=== PATIENT | female | born 1940 | race Caucasian/White ===

== ENCOUNTER 2019-05-18 07:59 | Inpatient (IN) | payer MEDICARE ==
[~2019-05-18] VITALS: Ht 167.6 cm; Wt 75.9 kg
[~2019-05-18 07:59] MED LIST: ASCO10004 PO; CRAN500C PO; MULT-658 PO; PROP20TA PO; VIT1CAPS42 PO; [UNRECOGNIZED DRUG - CODE] PO
[2019-05-18] MEDS ORDERED: LACTATED RINGERS 1,000 ML IV SCH (08:22)
[2019-05-18] MEDS ORDERED: LIDOCAINE-MPF 1%, 2ML INFIL ONE (08:30)
[2019-05-18 08:44] VITALS: BP 189/99
[2019-05-18] MEDS ORDERED: HEPARIN 1,000 UNITS/ML, 30ML ONE (08:49)
[2019-05-18] MEDS ORDERED: PROTAMINE SULFATE 10 MG/ML, 5ML ONE (08:49)
[2019-05-18] MEDS ORDERED: BUPIVACAINE/PF-EPI 0.5% 1:200K ONE ×2 (08:49→10:45)
[2019-05-18] MEDS ORDERED: HEPARIN 1,000 UNITS/ML, 10ML ONE (08:49)
[2019-05-18] MEDS ORDERED: THROMBIN 20,000 UNIT VIAL TP ONE (08:50)
[2019-05-18 08:55] LABS: BASOPHILS # (AUTO) 0.05 x10^3/uL (0-0.1); BASOPHILS % (AUTO) 1 % (0-1); EOSINOPHILS # (AUTO) 0.14 x10^3/uL (0-0.4); EOSINOPHILS % (AUTO) 1 % (1-7); LYMPHOCYTES # (AUTO) 2.66 x10^3/uL (1-3.4); LYMPHOCYTES % (AUTO) 26 % (22-44); MD NO; MEAN CORPUSCULAR HEMOGLOBIN 29.8 pg (27.0-34.8); MEAN CORPUSCULAR HGB CONC 32.7 g/dL (32.4-35.8); MEAN CORPUSCULAR VOLUME 91.1 fL (80-100); MEAN PLATELET VOLUME 7.7 fL (7.4-10.4); MONOCYTES # (AUTO) 0.73 x10^3/uL (0.2-0.8); MONOCYTES % (AUTO) 7 % (2-9); NEUTROPHILS # (AUTO) 6.64 x10^3/uL (1.8-6.8); NEUTROPHILS % (AUTO) 65 % (42-75); PLATELET COUNT 370 x10^3/uL (130-400); RED BLOOD COUNT 6.04 x10^6/uL (3.82-5.3); RED CELL DISTRIBUTION WIDTH 13.2 % (9.6-15.2)
[2019-05-18 09:03] LABS: ALANINE AMINOTRANSFERASE 19 U/L (12-78); ALBUMIN 3.8 g/dL (3.4-5.0); ANION GAP 8 mmol/L (5-15); CALCIUM 9.5 mg/dL (8.5-10.1); CHLORIDE 103 mmol/L (98-107); CREATININE 1.15 mg/dL (0.55-1.02)
[2019-05-18 09:05] LABS: ALKALINE PHOSPHATASE 120 U/L (45-117); BILIRUBIN,TOTAL 0.7 mg/dL (0.2-1.0); TOTAL PROTEIN 8.4 g/dL (6.4-8.2)
[2019-05-18] MEDS ORDERED: MIDAZOLAM 1 MG/ML, 2ML ONE (10:06)
[2019-05-18] MEDS ORDERED: FENTANYL PF 250 MCG/5ML ONE (10:06)
[2019-05-18] MEDS ORDERED: BUPIVACAINE/PF 0.5% ONE (10:45)
[2019-05-18] MEDS ORDERED: BUPIVACAINE/PF 0.25% ONE (10:45)
[2019-05-18] MEDS ORDERED: PHENYLEPHRINE 10 MG/ML ONE (11:04)
[2019-05-18] MEDS ORDERED: EPHEDRINE 50 MG/ML, 1ML ONE (11:04)
[2019-05-18] MEDS ORDERED: MEPERIDINE/PF 25MG/ML,1ML IVPush PRN (12:00)
[2019-05-18] MEDS ORDERED: PROMETHAZINE 25 MG/ML, 1ML IV PRN (12:00)
[2019-05-18] MEDS ORDERED: ACETAMINOPHEN 325 MG TABLET PO PRN (12:00)
[2019-05-18] MEDS ORDERED: hydrALAzine 20 MG/ML, 1ML IV PRN (12:00)
[2019-05-18] MEDS ORDERED: HYDROmorphone 2 MG/ML, 1ML IVPush PRN (12:00)
[2019-05-18] MEDS ORDERED: LABETALOL 5MG/ML, 20ML IV PRN (12:00)
[2019-05-18] MEDS ORDERED: LORazepam 2 MG/ML, 1ML IVPush PRN (12:00)
[2019-05-18] MEDS ORDERED: OXYcodone 5 MG/5 ML ORAL.SOL UDC PO PRN (12:00)
[2019-05-18] MEDS ORDERED: ALBUTEROL SULFATE 2.5 MG/3 ML NPPB PRN (12:00)
[2019-05-18] MEDS ORDERED: FENTANYL PF 100 MCG/2ML IV PRN (12:00)
[2019-05-18] MEDS ORDERED: FENTANYL PF 100 MCG/2ML ONE (13:37)
[2019-05-18] MEDS ORDERED: CEFAZOLIN 1,000 MG ONE (14:26)
[2019-05-18] MEDS ORDERED: DEXAMETHASONE 4 MG/ML, 1ML ONE (14:26)
[2019-05-18] MEDS ORDERED: GLYCOPYRROLATE 0.2MG/1ML, 5ML ONE (14:26)
[2019-05-18] MEDS ORDERED: ROCURONIUM 10MG/ML,5ML ONE (14:26)
[2019-05-18] MEDS ORDERED: PROPOFOL 10 MG/ML, 20ML ONE (14:26)
[2019-05-18] MEDS ORDERED: ONDANSETRON 2MG/ML, 2ML ONE (14:26)
[2019-05-18] MEDS ORDERED: NEOSTIGMINE 1 MG/ML, 10ML ONE (14:26)
[2019-05-18] MEDS ORDERED: SUCCINYLCHOLINE 20 MG/ML, 10ML ONE (14:26)
[2019-05-18] MEDS ORDERED: ENOXAPARIN 40 MG/0.4 ML SQ SCH (15:00)
[2019-05-18] MEDS ORDERED: ACETAMINOPHEN 650 MG/20.3 ML UDC PO PRN ×2 (15:00→15:45)
[2019-05-18] MEDS ORDERED: CEFAZOLIN PMX 1GM/50ML 50 ML IVPB SCH (15:00)
[2019-05-18] MEDS ORDERED: ONDANSETRON 2MG/ML, 2ML IVPush PRN ×2 (15:00→15:45)
[2019-05-18 16:55] VITALS: BP 128/68
[2019-05-18 20:03] VITALS: BP 150/64
[2019-05-18] MEDS: MULTIVITAMINS/MINERALS TABLET PO SCH (21:00)
[2019-05-18] MEDS ORDERED: TEMPLATE NON-FORMULARY MED. (Vit C/E/Zn/Coppr/Lutein/Zeaxan** (Preservision Areds 2 Softge PO SCH (21:00)
[2019-05-18] MEDS ORDERED: PROPRANOLOL 20 MG TABLET PO SCH (21:00)
[2019-05-18] MEDS: LACTATED RINGERS 1,000 ML IV SCH (21:00)
[2019-05-18] MEDS: PROPRANOLOL 20 MG TABLET PO SCH (22:30)
[2019-05-18 22:38] VITALS: BP 139/69
[2019-05-18] MEDS: CEFAZOLIN PMX 1GM/50ML 50 ML IVPB SCH (22:41)
[2019-05-19] MEDS: LACTATED RINGERS 1,000 ML IV SCH (01:43)
[2019-05-19 03:48] VITALS: BP 148/62
[2019-05-19 05:20] LABS: ALBUMIN 2.9 g/dL (3.4-5.0); ANION GAP 6 mmol/L (5-15); CALCIUM 8.2 mg/dL (8.5-10.1); CHLORIDE 105 mmol/L (98-107); CREATININE 1.54 mg/dL (0.55-1.02)
[2019-05-19 05:35] LABS: MEAN CORPUSCULAR HEMOGLOBIN 30.3 pg (27.0-34.8); MEAN CORPUSCULAR HGB CONC 33.1 g/dL (32.4-35.8); MEAN CORPUSCULAR VOLUME 91.4 fL (80-100); MEAN PLATELET VOLUME 7.5 fL (7.4-10.4); PLATELET COUNT 286 x10^3/uL (130-400); RED BLOOD COUNT 4.63 x10^6/uL (3.82-5.3); RED CELL DISTRIBUTION WIDTH 13.8 % (9.6-15.2)
[2019-05-19] MEDS ORDERED: ASPIRIN 325 MG TABLET EC PO SCH (06:00)
[2019-05-19 06:07] LABS: MD YES
[2019-05-19 06:08] LABS: <PLATELET ESTIMATE> ADEQUATE; <PLT MORPHOLOGY> NORMAL PLT MORPH; <RBC MORPHOLOGY> NORMAL; BANDS%(MANUAL) 3 % (0-7); LYMPH#(MANUAL) 1.39 x10^3/uL (1-3.4); LYMPHS% (MANUAL) 7 % (22-44); MONOS#(MANUAL) 2.19 x10^3/uL (0.3-2.7); MONOS% (MANUAL) 11 % (2-9); SEG#(MANUAL) 15.72 x10^3/uL (1.8-6.8); SEGS% (MANUAL) 79 % (42-75)
[2019-05-19 07:13] VITALS: BP 129/56
[2019-05-19] MEDS: PROPRANOLOL 20 MG TABLET PO SCH (07:36)
[2019-05-19] MEDS: CEFAZOLIN PMX 1GM/50ML 50 ML IVPB SCH (07:36)
[2019-05-19] MEDS: ASPIRIN 81 MG TABLET EC PO SCH ×2 (07:36→07:39)
[2019-05-19] MEDS ORDERED: ASPI81TA45 PO (07:54)
[2019-05-19] MEDS ORDERED: ENOXAPARIN 40 MG/0.4 ML SQ SCH (08:00)
[2019-05-19] MEDS: MULTIVITAMINS/MINERALS TABLET PO SCH (08:16)
[2019-05-19] MEDS ORDERED: MULTIVITAMIN 1 TABLET PO SCH ×2 (09:00)
[2019-05-19] MEDS ORDERED: TEMPLATE NON-FORMULARY MED. (Ascorbic Acid** (Vitamin C**) 1,000 MG) PO SCH (09:00)
[2019-05-19] MEDS ORDERED: ASCORBIC ACID 500 MG TABLET PO SCH (09:00)
[2019-05-19 13:53] VITALS: BP 106/74
== END 2019-05-19 16:30 | disposition home or self-care (01) | DRG 269 ==
LOC: INTOOBSV 07:59 → UNDOADMOB 07:59 → ORIP 07:59 → OBSVTOIN 15:04 → ORIP 15:04 → 4NE 16:22
PROVIDERS: ADMIT Surgery; ATTEND Surgery
PROC: 04V03DZ Restriction of Abdominal Aorta with Intraluminal Device, Percutaneous Approach (ICD-10-PCS; principal; 2019-05-19)
PROC: 03HY32Z Insertion of Monitoring Device into Upper Artery, Percutaneous Approach (ICD-10-PCS; 2019-05-19)
PROC: 04HD3DZ Insertion of Intraluminal Device into Left Common Iliac Artery, Percutaneous Approach (ICD-10-PCS; 2019-05-19)
PROC: 04HC3DZ Insertion of Intraluminal Device into Right Common Iliac Artery, Percutaneous Approach (ICD-10-PCS; 2019-05-19)
DX: I71.4 Abdominal aortic aneurysm, without rupture (principal); J44.9 Chronic obstructive pulmonary disease, unspecified; F17.210 Nicotine dependence, cigarettes, uncomplicated; I10 Essential (primary) hypertension; Z79.899 Other long term (current) drug therapy
CPT/HCPCS: 34705; 36415; 71045; 80048; 80053; 82040; 85025; 86850; 86900; 93005; 96365; 96366; G0378; J0690; J1100; J1644; J2250; J2405; J2704; J2710; J2720; J3010; J3490; C1713; C1751; C1768; C1769; C1876; C1894; J0330; J2370; J7120